=== PATIENT | female | born 1985 | race Caucasian/White ===

== ENCOUNTER 2019-12-22 09:53 | Emergency (ER) | payer MEDICAID, OTHER ==
[~2019-12-22] VITALS: Ht 165.1 cm; Wt 89.4 kg
[~2019-12-22 09:53] MED LIST: ALPRAZOLAM 2 MG
--- NOTE | 2019-12-22 09:58 | NUR ---
Patient ambulated to bed 7
[2019-12-22 10:02] VITALS: BP 155/93
--- NOTE | 2019-12-22 10:04 | NUR ---
PT AMBULATED WITH STEADY GAIT TO BATHROOM
--- NOTE | 2019-12-22 10:19 | NUR ---
34 Y/F PRESENTS TO ED WITH C/O EPIGASTRIC PAIN (5/10) X 3 DAY THAT RADIATES TO MIDDLE OF ABDOMEN. PT REPORTS NAUSEA, VOMITING, HEADACHE (10/10)AND DIZZINESS X 1 DAY. PT ALSO REPORTS LIGHT SENSITIVITY. PT REPORTS FEELING "BLOATED", DENIES CONSTIPATION OR DIARRHEA. LAST BM X 1 DAY. ABDOMEN SOFT, NON DISTENDED. DENIES URINARY BURNING OR FREQ. REPORTS BROWN DISCHARGE X 1 DAY HX- ANXIETY NKDA
[2019-12-22] MEDS ORDERED: KETOROLAC 60 MG/2 ML VIAL IM ONE (11:00)
[2019-12-22] MEDS ORDERED: ONDANSETRON 4 MG ODT PO ONE (11:00)
--- NOTE | 2019-12-22 11:21 | NUR ---
PT AMBULATED TO BATHROOM, STEADY GAIT.
[2019-12-22 12:05] VITALS: BP 136/84
--- NOTE | 2019-12-22 12:05 | NUR ---
Patient discharged with v/s stable. Written and verbal after care instructions given and explained. Patient alert, oriented and verbalized understanding of instructions. Ambulatory with steady gait. All questions addressed prior to discharge. ID band removed. Patient advised to follow up with PMD. Rx of ZOFRAN AND MOTRIN given. Patient educated on indication of medication including possible reaction and side effects. Opportunity to ask questions provided and answered.
== END 2019-12-22 12:05 | disposition home or self-care (01) ==
LOC: MED 09:53
DX: R10.13 Epigastric pain (principal); R11.2 Nausea with vomiting, unspecified; R10.30 Lower abdominal pain, unspecified; F41.9 Anxiety disorder, unspecified; Z98.890 Other specified postprocedural states; Z79.899 Other long term (current) drug therapy
CPT/HCPCS: 81002; 81025; 96372; 99283; J1885; Q0162